=== PATIENT | female | born 1970 | race Two or more races ===

== ENCOUNTER 2022-07-19 12:42 | Emergency (ER) | payer MEDICAID, OTHER ==
[~2022-07-19] VITALS: Ht 152.4 cm; Wt 78.2 kg
[2022-07-19 13:08] VITALS: BP 128/84
== END 2022-07-19 16:24 | disposition left against medical advice (07) ==
LOC: ER 12:42
DX: R05.9 Cough, unspecified (principal); Z53.21 Procedure and treatment not carried out due to patient leaving prior to being seen by health care provider